=== PATIENT | female | born 1950 | race Caucasian/White ===

== ENCOUNTER 2024-02-28 11:47 | Outpatient (RCR) | payer MEDICARE, BC, SELFPAY ==
[2024-02-28 12:15] VITALS: BP 83/47; PULSE 84; RESP 16; TEMP 36.3; O2SAT 94
[2024-02-28 13:25] VITALS: BP 96/54; PULSE 79; RESP 16; O2SAT 96
--- NOTE | 2024-03-13 09:53 | ONC.NURNOTE ---
Dx: pancreatic cancer
== END 2024-08-26 23:59 | disposition home or self-care (01) ==
LOC: CCIC 11:47
PROVIDERS: Visit Provider Clinical Nurse Specialist
DX: C25.0 Malignant neoplasm of head of pancreas (principal)
CPT/HCPCS: 96360